=== PATIENT | male | born 1965 | race African-American/Black ===

== ENCOUNTER 2021-05-29 17:01 | Emergency (ER) | payer OTHER ==
[~2021-05-29] VITALS: Ht 182.9 cm; Wt 107.7 kg
[~2021-05-29 17:01] MED LIST: LISI-517 PO
[2021-05-29] MEDS ORDERED: LABETALOL 20 MG/4 ML DISP.SYRIN. IVP ONE (17:15)
[2021-05-29] MEDS ORDERED: IOHEXOL 350 MG/ML 100 ML VIAL. IV ONE (17:30)
[2021-05-29] MEDS ORDERED: ONDANSETRON PF 4 MG/2 ML VIAL. ONE (17:41)
--- NOTE | 2021-05-29 17:41 | PHYS DOC ---
Past History Past Medical History: GERD, High Cholesterol, Hypertension (MARY PINZON MACHINE REPAIRER MAINTENANCE) Past Surgical History: No Surgical History (MARY PINZNO MACHINE REPAIRER MAINTENANCE) Alcohol Use: None (MARY PINZON APRN) Adult General Chief Complaint Chief Complaint: HYPERTENSION HPI HPI Patient is a 56-year-old male patient with history of hypertension, high cholesterol, acid reflux, who presents to the ED today with multiple complaints. Patient states for the last 1-1/2 weeks he has felt short of air and feels he has fluid in his left lungs. He states symptoms are worse when he is laying down at night. He is also complaining of fever on his left side only. He states he received a Covid vaccine and also had a negative Covid test yesterday. He states his heart has been racing especially at night when he is laying down and has a cough (MARY PINZON APRN) Review of Systems Review of Systems Constitutional: Reports fevers to his left side of the body Eyes: Denies change in visual acuity, redness, or eye pain [] HENT: Denies nasal congestion or sore throat [] Respiratory: Reports shortness of breath and cough Cardiovascular: Reports fluid to his left lung, no chest pain GI: Denies abdominal pain, nausea, vomiting, bloody stools or diarrhea [] : Denies dysuria or hematuria [] Musculoskeletal: Denies back pain or joint pain [] Integument: Denies rash or skin lesions [] Neurologic: Denies headache, focal weakness or sensory changes [] All other systems were reviewed and found to be within normal limits, except as documented in this note. (MARY PINZON APRN) Current Medications Current Medications Current Medications Medications (Trade) Dose Ordered Sig/Carly Start Time Stop Time Status Last Admin Dose Admin Iohexol (Omnipaque 350 Mg/ml) 100 ml 1X ONCE 05/29/21 17:30 05/29/21 17:31 DC Labetalol HCl (Normodyne) 10 mg 1X ONCE 05/29/21 17:15 05/29/21 17:19 DC 05/29/21 17:34 10 MG (MARY PINZON MACHINE REPAIRER MAINTENANCE) Allergies Allergies Allergies Coded Allergies Type Severity Reaction Last Updated Verified No Known Drug Allergies 09/29/15 No (MARY PINZON MACHINE REPAIRER MAINTENANCE) Physical Exam Physical Exam Constitutional: Well developed, well nourished, no acute distress, non-toxic appearance. [] HENT: Normocephalic, atraumatic, bilateral external ears normal, oropharynx moist, no oral exudates, nose normal. [] Eyes: PERRLA, EOMI, conjunctiva normal, no discharge. [] Neck: Normal range of motion, no tenderness, supple, no stridor. [] Cardiovascular: Tachycardic Lungs & Thorax: Bilateral breath sounds clear to auscultation [] Abdomen: Bowel sounds normal, soft, no tenderness, no masses, no pulsatile masses. [] Skin: Warm, dry, no erythema, no rash. [] Back: No tenderness, no CVA tenderness. [] Extremities: No tenderness, no cyanosis, no clubbing, ROM intact, no edema. [] Neurologic: Alert and oriented X 3, normal motor function, normal sensory function, no focal deficits noted. [] Psychologic: Affect normal, judgement normal, mood normal. [] ([facility] Current Patient Data Vital Signs Vital Signs Date Time Temp Pulse Resp B/P (MAP) Pulse Ox O2 Delivery O2 Flow Rate FiO2 05/29/21 17:34 141 161/114 05/29/21 17:01 16 97 Room Air [facility] EKG EKG [address] Koroma sinus tachycardia HR 141 no STEMI[] [address] Koroma sinus tachycardia heart rate 137 no STEMI [] [facility] Radiology/Procedures Radiology/Procedures PROCEDURE: CT ANGIOGRAPHY CHEST Examination: CT angiography chest with IV contrast HISTORY: History of shortness of breath, tachycardia COMPARISON: None available TECHNIQUE: Axial CT angiographic images of chest were performed with IV contra st. Coronal and sagittal 3-D MIP reformats are performed Exposure: One or more of the following individualized dose reduction techniques were utilized for this examination: 1. Automated exposure control 2. Adjustment of the mA and/or kV according to patient size 3. Use of iterative reconstruction technique FINDINGS: The central airways are patent. The caliber of the aorta grossly appears unremarkable. Small mediastinal lymph nodes identified with the largest measuring 1.1 cm There is no evidence of filling defect identified in the main pulmonary arterial trunk and right and left main pulmonary arteries and the visualized lobar, segmental branches of the pulmonary arteries. Moderate consolidation changes identified in the right upper lobe, right middle lobe, right lower lobe in the central portion of the right lung with air bronchograms with focal airspace opacities identified in the left upper lobe of the lung likely pneumonia or covid pneumonia. 6 mm nodule left lower lobe of the lung. The visualized liver, spleen, adrenals grossly appears unremarkable Mild degenerative changes thoracic spine. IMPRESSION: 1. No evidence of pulmonary embolism. 2. Moderate consolidation changes identified in the right upper lobe, right middle lobe, right lower lobe in the central portion of the right lung with air bronchograms with focal airspace opacities identified in the left upper lobe of the lung likely pneumonia or covid pneumonia. Follow-up to resolution. 3. 6 mm nodule left lower lobe of the lung. Follow-up per Fleischner Society guidelines. Fleischner Society 2017 guidelines for management of incidentally detected pulmonary nodules in adults SOLID NODULES: SINGLE NODULE: Less than 6 mm; low risk-no routine follow-up; high risk- optional CT study at 12 months. (Certain patients at high risk with suspicious nodule morphology, upper lobe location, or both may warrant 12 month follow-up) 6-8 mm; low risk-CT study at 6-12 months, then consider CT at 18-24 months; high risk-CT study at 6-12 months, then CT at 18-24 months. Greater than 8 mm; low risk-consider CT at 3 months, PET/CT or tissue sampling; high risk-consider CT at 3 months, PET/CT, or tissue sampling. MULTIPLE NODULES: Less than 6 mm; low risk-no routine follow-up; high risk- optional CT at 12 months (certain patients at high risk for suspicious nodule. If solid components or growth develops, consider resection morphology, upper lobe location, or both may warrant 12 month follow-up) 6-8 mm; low risk-CT at 3-6 months, then consider CT at 18-24 months; high risk- CT at 3-6 months, then at 18-24 months. Greater than 8 mm; low risk-CT at 3-6 months, then consider CT at 18-24 months; high risk-CT at 3-6 months, then at 18-24 months. Note - Use most suspicious nodule as guide to management. Follow-up intervals may vary according to size and risk. SUBSOLID NODULES SINGLE(ground glass): less than 6 mm-no routine follow-up; greater than or equal to 6 mm-CT at 6-12 months to confirm persistence, then CT every 2 years until 5 years. (In certain suspicious nodules less than 6 mm, consider follow-up at 2 and 4 years. If solid component(s) or growth develops, consider resection .) SINGLE (part solid): Less than 6 mm-no routine follow-up; greater than or equal to 6 mm-CT at 3-6 months to confirm persistence. If unchanged and solid component remains less than 6 mm, annual CT should be performed for 5 years. (In practice, part solid nodules cannot be defined as such until greater than or equal to 6 mm, and nodules less than 6 mm do not usually require follow-up. Persistent part solid nodules with solid components greater than or equal to 6 mm should be considered highly suspicious.) MULTIPLE; less than 6 mm-CT at 3-6 months. If stable, consider CT at 2 and 4 years; greater than or equal to 6 mm-CT at 3-6 months. Subsequent management based on the most suspicious nodule(s). (Multiple less than 6 mm pure ground glass nodules are usually benign, but consider follow-up in selected patients at high risk at 2 and 4 years.) NOTE - these recommendations do not apply to lung cancer screening, patients with immunosuppression, or patients with known primary cancer. Electronically signed by: Brian Jeong MD (05/29/2021 6:10 PM) [id number] DICTATED AND SIGNED BY: BRIAN JEONG MD DATE: 05/29/211802 CC: EMERGENCY,DEPARTMENT; MARY PINZON APRN; AARON LÓPEZ MD ~MTH0 0 (MARY PINZON APRN) Heart Score C/O Chest Pain: N/A Risk Factors: Risk Factors: DM, Current or recent (<one month) smoker, HTN, HLP, family history of CAD, obesity. Risk Scores: Risk Factors: DM, Current or recent (<one month) smoker, HTN, HLP, family history of CAD, obesity. (MARY PINZON APRN) Course & Med Decision Making Course & Med Decision Making Pertinent Labs and Imaging studies reviewed. (See chart for details) This is a 56-year-old male patient presented to the ED today with multiple complaints including feeling fluid in his left chest, shortness of breath, heart racing, fever to the left side of his body only, symptoms for almost 2 weeks. Tachycardic: Heart rate 140s BP on arrival 186/123 given Labetolol. O2 sats 94% to 97 percent on room air CBC with no acute findings, CMP AST of 51, ALT of 70, CK 464, BNP 541. CTA chest negative for PE, Moderate consolidation changes identified in the right upper lobe, right middle lobe, right lower lobe in the central portion of the right lung with air bronchograms with focal airspace opacities identified in the left upper lobe of the lung likely pneumonia or covid pneumonia. Follow-up to resolution.6 mm nodule left lower lobe of the lung. Follow-up per Fleischner Society guidelines. Spoke to Dr. Thao who requested we transfer patient to [facility] because they do not have a director child development center as well as ventilator at [facility] Accepted at [facility] by Dr. Farrell (MARY PINZON APRN) Dragon Disclaimer Dragon Disclaimer This electronic medical record was generated, in whole or in part, using a voice recognition dictation system. (MARY PINZON APRN) Departure Departure: Impression: Primary Impression: Tachycardia Additional Impressions: Right lower lobe pneumonia Cough COVID Disposition: 02 [facility]ORT TERM [facility] Condition: STABLE Referrals: AARON LÓPEZ MD (PCP) Attending Signature Attending Signature I have reviewed the PA/MOISTURE TESTER's note and plan of care. I was available for consultation as needed during the patient's visit in the emergency department. I agree with the clinical impression, plan, and disposition. (EDDA KOROMA DO) Problem Qualifiers Additional Impressions: Right lower lobe pneumonia Pneumonia type: due to unspecified organism Qualified Codes: J18.9 - Pneumonia, unspecified organism MARY PINZON APRN May 29, 2021 17:41 EDDA KOROMA DO May 29, 2021 20:24
[2021-05-29] MEDS ORDERED: ONDANSETRON PF 4 MG/2 ML VIAL. IVP ONE (17:45)
[2021-05-29 17:51] LABS: BASO # 0.1 x10^3/uL (0.0-0.2); BASO % 1 % (0-3); EOS % 1 % (0-3); HEMATOCRIT 40.9 % (39.0-53.0); HEMOGLOBIN 13.4 g/dL (13.0-17.5); LYMPH # 1.4 x10^3/uL (1.0-4.8); LYMPH % 26 % (24-48); MEAN CORPUSCULAR HEMOGLOBIN 27 pg (25-35); MEAN CORPUSCULAR HGB CONC 33 g/dL (31-37); MEAN CORPUSCULAR VOLUME 83 fL (79-100); MONO # 0.5 x10^3/uL (0.0-1.1); MONO % 9 % (0-9); NEUT # 3.3 x10^3uL (1.8-7.7); NEUT % 63 % (31-73); PLATELET COUNT 219 x10^3/uL (140-400); RED BLOOD COUNT 4.95 x10^6/uL (4.30-5.70); RED CELL DISTRIBUTION WIDTH 14.4 % (11.5-14.5); WHITE BLOOD COUNT 5.3 x10^3/uL (4.0-11.0)
[2021-05-29 18:10] LABS: BARBITURATES NEG (NEG); BENZODIAZEPINES NEG (NEG); CANNABINOIDS NEG (NEG); COCAINE NEG (NEG); METHADONE NEG (NEG); OPIATES NEG (NEG); PHENCYCLIDINE NEG (NEG)
--- NOTE | 2021-05-29 18:13 | RAD ---
Examination: CT angiography chest with IV contrast HISTORY: History of shortness of breath, tachycardia COMPARISON: None available TECHNIQUE: Axial CT angiographic images of chest were performed with IV contrast. Coronal and sagitta l 3-D MIP reformats are performed Exposure: One or more of the following individualized dose reduction techniques were utilized for thi s examination: 1. Automated exposure control 2. Adjustment of the mA and/or kV according to patient size 3. Use of iterative reconstruction technique FINDINGS: The central airways are patent. The caliber of the aorta grossly appears unremarkable. Small mediasti nal lymph nodes identified with the largest measuring 1.1 cm There is no evidence of filling defect identified in the main pulmonary arterial trunk and right and left main pulmonary arteries and the visualized lobar, segmental branches of the pulmonary arteries. Moderate consolidation changes identified in the right upper lobe, right middle lobe, right lower lob e in the central portion of the right lung with air bronchograms with focal airspace opacities identi fied in the left upper lobe of the lung likely pneumonia or covid pneumonia. 6 mm nodule left lower lobe of the lung. The visualized liver, spleen, adrenals grossly appears unremarkable Mild degenerative changes thoracic spine. IMPRESSION: 1. No evidence of pulmonary embolism. 2. Moderate consolidation changes identified in the right upper lobe, right middle lobe, right lower lobe in the central portion of the right lung with air bronchograms with focal airspace opacities id entified in the left upper lobe of the lung likely pneumonia or covid pneumonia. Follow-up to resolut ion. 3. 6 mm nodule left lower lobe of the lung. Follow-up per Fleischner Society guidelines. Fleischner Society 2017 guidelines for management of incidentally detected pulmonary nodules in adult s SOLID NODULES: SINGLE NODULE: Less than 6 mm; low risk-no routine follow-up; high risk-optional CT study at 12 mo nths. (Certain patients at high risk with suspicious nodule morphology, upper lobe location, or both may warrant 12 month follow-up) 6-8 mm; low risk-CT study at 6-12 months, then consider CT at 18-24 months; high risk-CT study at 6-1 2 months, then CT at 18-24 months. Greater than 8 mm; low risk-consider CT at 3 months, PET/CT or tissue sampling; high risk-consider CT at 3 months, PET/CT, or tissue sampling. MULTIPLE NODULES: Less than 6 mm; low risk-no routine follow-up; high risk-optional CT at 12 month s (certain patients at high risk for suspicious nodule. If solid components or growth develops, consi kassandra resection morphology, upper lobe location, or both may warrant 12 month follow-up) 6-8 mm; low risk-CT at 3-6 months, then consider CT at 18-24 months; high risk-CT at 3-6 months, then at 18-24 months. Greater than 8 mm; low risk-CT at 3-6 months, then consider CT at 18-24 months; high risk-CT at 3-6 m onths, then at 18-24 months. Note - Use most suspicious nodule as guide to management. Follow-up intervals may vary according to s ize and risk. SUBSOLID NODULES SINGLE(ground glass): less than 6 mm-no routine follow-up; greater than or equal to 6 mm-CT at 6-1 2 months to confirm persistence, then CT every 2 years until 5 years. (In certain suspicious nodules less than 6 mm, consider follow-up at 2 and 4 years. If solid component(s) or growth develops, consid er resection.) SINGLE (part solid): Less than 6 mm-no routine follow-up; greater than or equal to 6 mm-CT at 3-6 months to confirm persistence. If unchanged and solid component remains less than 6 mm, annual CT taty uld be performed for 5 years. (In practice, part solid nodules cannot be defined as such until greate r than or equal to 6 mm, and nodules less than 6 mm do not usually require follow-up. Persistent part solid nodules with solid components greater than or equal to 6 mm should be considered highly suspic ious.) MULTIPLE; less than 6 mm-CT at 3-6 months. If stable, consider CT at 2 and 4 years; greater than o r equal to 6 mm-CT at 3-6 months. Subsequent management based on the most suspicious nodule(s). (Mult iple less than 6 mm pure ground glass nodules are usually benign, but consider follow-up in selected patients at high risk at 2 and 4 years.) NOTE - these recommendations do not apply to lung cancer screening, patients with immunosuppression, or patients with known primary cancer. Electronically signed by: Brian Jeong MD (05/29/2021 6:10 PM) [id number]
[2021-05-29 18:14] LABS: AMPHETAMINE/METHAMPHETAMINE NEG (NEG)
[2021-05-29 18:20] LABS: BACTERIA,URINE 0 /HPF (0-FEW); BILIRUBIN,URINE NEG (NEG); CLARITY,URINE CLEAR; COLOR,URINE YELLOW; GLUCOSE,URINE NEG (NEG); NITRITE,URINE NEG (NEG); RBC,URINE 0 /HPF (0-2); SQUAMOUS EPITHELIAL CELL,UR OCC /LPF; WBC,URINE 0 /HPF (0-4)
[2021-05-29] MEDS ORDERED: cefTRIAXone SODIUM 1 GM VIAL ONE (18:27)
[2021-05-29] MEDS ORDERED: IV NORMAL SALINE 50ML 50 ML ONE (18:27)
--- NOTE | 2021-05-29 19:00 | EKG ---
[address] [address] Test Date: 2021-05-29 Test Time: 17:13:29 Pat Name: LORELEI OLSON Department: Room: Gender: M Aco Coordinator: [facility] : 1965 Requested By: MARY PINZON Order Number: [id number] Reading MD: Measurements Intervals [place] Rate: 141 P: 116 MD: 130 QRS: 15 QRSD: 86 T: -19 QT: 276 QTc: 425 Interpretive Statements SINUS TACHYCARDIA R-S TRANSITION ZONE IN V LEADS DISPLACED TO THE LEFT T ABNORMALITY IN INFERIOR LEADS ABNORMAL ECG RI6.02 No previous ECG available for comparison
[2021-05-29 19:01] LABS: CALCIUM 8.5 mg/dL (8.5-10.1); CREATININE 1.1 mg/dL (0.7-1.3); GFR 83.8
--- NOTE | 2021-05-29 19:05 | EKG ---
[address] [address] Test Date: 2021-05-29 Test Time: 17:54:22 Pat Name: LORELEI OLSON Department: Room: Gender: M Environmental Studies Program Director: [facility] : 1965 Requested By: MARY PINZON Order Number: [id number] Reading MD: Measurements Intervals [place] Rate: 137 P: 124 VA: 146 QRS: 98 QRSD: 84 T: -6 QT: 284 QTc: 430 Interpretive Statements SINUS TACHYCARDIA RIGHTWARD AXIS R-S TRANSITION ZONE IN V LEADS DISPLACED TO THE LEFT ST & T ABNORMALITY, CONSIDER RECENT INFERIOR MYOCARDIAL OR PERICARDIAL DAMAGE ABNORMAL ECG RI6.02 Compared to ECG 05/29/2021 17:13:29 Right-axis deviation now present T-wave abnormality still present
[2021-05-29 19:16] LABS: ALBUMIN 3.1 g/dL (3.4-5.0); ALBUMIN/GLOBULIN RATIO 0.8 (1.0-1.7); MAGNESIUM 1.8 mg/dL (1.8-2.4); TOTAL BILIRUBIN 0.7 mg/dL (0.2-1.0); TOTAL PROTEIN 6.8 g/dL (6.4-8.2)
[2021-05-29] MEDS ORDERED: IV NORMAL SALINE 1,000ML 1,000 ML IV ONE ×2 (19:45)
[2021-05-29] MEDS ORDERED: hydrALAZINE 20 MG/ML VIAL. IV ONE (19:45)
[2021-05-29 20:38] VITALS: BP 174/119
== END 2021-05-29 22:10 | disposition short-term general hospital (02) ==
LOC: ER 17:01
DX: J18.1 Lobar pneumonia, unspecified organism (principal); R00.0 Tachycardia, unspecified; K21.9 Gastro-esophageal reflux disease without esophagitis; E78.00 Pure hypercholesterolemia, unspecified; I10 Essential (primary) hypertension; Z20.822 Contact with and (suspected) exposure to COVID-19
CPT/HCPCS: 36415; 71275; 80053; 80307; 81001; 82553; 83735; 83880; 84443; 84484; 85025; 93005; 96361; 96365; 96375; 99285; C9803; J0360; J0696; J2405; J3490; J7030; U0003

== ENCOUNTER → 2021-09-20 | Outpatient (CLI) | payer OTHER ==
[~2021-09-20] MED LIST changes: -LISI-517 PO; +LISI5TAB15 PO
--- NOTE | 2021-09-20 18:06 | RAD ---
XR CHEST 2V CLINICAL INDICATIONS: Shortness of air Comparison: None available. Findings: Mild bilateral peribronchial thickening is seen. No lung consolidation or pleural effusion or lung mass or pneumothorax is seen. The heart size, pulmonary vasculature, mediastinum and both hi la are unremarkable. The osseous structures appear intact. IMPRESSION: Mild bilateral peribronchial thickening which may be seen with bronchitis. No consolidati ve pneumonia is seen otherwise. Electronically signed by: Myron Medrano MD (09/20/2021 6:04 PM) [id number]
== END ==
LOC: RAD 13:44
PROVIDERS: ATTEND Internal Medicine Pulmonary Disease
DX: J98.09 Other diseases of bronchus, not elsewhere classified (principal); R06.02 Shortness of breath
CPT/HCPCS: 71046

== ENCOUNTER → 2021-10-05 | Outpatient (CLI) | payer OTHER | LOC: LAB 10:58 | PROVIDERS: ATTEND Internal Medicine Cardiovascular Disease | DX: I25.10 Atherosclerotic heart disease of native coronary artery without angina pectoris (principal) | CPT/HCPCS: 80061 ==